=== PATIENT | male | born 1990 | race Caucasian/White ===

== ENCOUNTER → 2020-09-24 | Day surgery (SDC) | payer MEDICARE, OTHER ==
[~2020-09-24] MED LIST: BENADRYL 50MG C50 MG PO; PEPCID20 MG PO; PREDNISONE 50 M50 MG PO
== END | disposition home or self-care (01) ==
LOC: OR 08:37
DX: K29.50 Unspecified chronic gastritis without bleeding (principal); J45.909 Unspecified asthma, uncomplicated; F17.210 Nicotine dependence, cigarettes, uncomplicated; Z88.0 Allergy status to penicillin; Z88.2 Allergy status to sulfonamides
CPT/HCPCS: J2704; J7040